=== PATIENT | male | born 1975 | race Native Hawaiian/Other Pacific Islander ===

== ENCOUNTER 2016-07-22 16:31 | Emergency (ER) | payer OTHER ==
[~2016-07-22] VITALS: Ht 172.7 cm; Wt 90.7 kg
[2016-07-22] MEDS ORDERED: LISI20TA11 PO (17:36)
== END 2016-07-22 18:39 | disposition home or self-care (01) ==
LOC: ED 16:31
DX: M54.5 Low back pain (principal); W19.XXXA Unspecified fall, initial encounter
CPT/HCPCS: 99281